=== PATIENT | male | born 1990 ===

== ENCOUNTER 2018-01-22 16:37 | Emergency (ER) | payer OTHER ==
[~2018-01-22] VITALS: Ht 167.6 cm; Wt 68.0 kg
[~2018-01-22 16:37] MED LIST: MOTRIN800 MG PO
== END 2018-01-22 18:02 | disposition home or self-care (01) ==
LOC: ER 16:37
DX: S60.221A Contusion of right hand, initial encounter (principal); W23.0XXA Caught, crushed, jammed, or pinched between moving objects, initial encounter; Y93.89 Activity, other specified; Y92.098 Other place in other non-institutional residence as the place of occurrence of the external cause; Y99.8 Other external cause status